=== PATIENT | male | born 1990 | race Caucasian/White ===

== ENCOUNTER 2016-10-03 09:22 | Emergency (ER) | payer OTHER ==
--- NOTE | ~2016-10-03 | EKG ---
PATIENT: KALI COSTA UNIT #: [id number] Ventricular Rate: 61 BPM Atrial Rate: 61 BPM P-R Interval: 160 ms QRS Duration: 96 ms Q-T Interval: 396 ms QTC Calculation(Bezet): 398 ms P [place]: 16 degrees Calculated R [place]: 81 degrees Calculated T [place]: 34 degrees Diagnosis Line: Normal sinus rhythm Diagnosis Line: Normal ECG Diagnosis Line: When compared with ECG of 11-NOV-2014 01:15, Diagnosis Line: No significant change was found Diagnosis Line: Confirmed by WILL JEFFERSON MD ([id number]) on Diagnosis Line: 10/03/2016 11:12:11 AM INTERPRETING ABBY GORDON
--- NOTE | ~2016-10-03 | CR72 ---
[facility] A Service of [facility] & [facility] RADIOLOGY TEXT RESULTS PATIENT: KALI COSTA LOCATION: [facility] : [birth year] UNIT #: [id number] AGE: [address]: Digna Maciel APRN SEX: M ORDER DR: [id number] [facility] [address] [place], [place] [address] [id number] E MR#: [id number] #: [id number] NAME: KALI COSTA : 1990 SEX: M STUDY DATE/TIME: 10/03/2016 9:53 UNIT: [facility] ROOM: STUDY DESCRIPTION: CR Chest Single View Portable Attending Physician: Digna Maciel A.P.R.N. Ordering Physician: Ed Doctor [id number] [facility] Primary Care Physician: Primary Care Physician No MEDICAL IMAGING REPORT This report is preliminary unless electronic signature is present EXAM Portable chest x-ray, 10/03/2016 HISTORY Short of air, chest pain 1 day duration. FINDINGS AP radiograph of the chest is presented. Comparison 12/13/2013. Heart upper limits of normal in size. Lungs well inflated. No indication of acute pulmonary disease. No pleural effusion or pneumothorax. No suspicious nodule. Mild dextroscoliosis thoracic spine unchanged. No acute appearing bony abnormality. Dictated by... Chan Mendoza M.D. THIS IS AN ELECTRONICALLY VERIFIED REPORT Chan Mendoza M.D. at 10/04/2016 6:42 PM Jossie TD: 10/03/2016 11:41 JOB #: [id number] MEDICAL IMAGING REPORT Page 1 of 1 COPY
[~2016-10-03 09:22] MED LIST: BENADRYL25 M1 PO; IBUPROFEN PO; SILVADENE TOP
[2016-10-03 10:05] LABS: BASOPHIL% 0.3 % (0-2.5); DIFF IND NO; EOSINOPHIL# 0.1 X10e3 (0-0.7); EOSINOPHIL% 0.5 % (0.0-7.0); HEMATOCRIT 48.2 % (38.0-50.0); LYMPHOCYTE# 1.1 X10e3 (1.0-3.5); LYMPHOCYTE% 10.6 % (17.0-45.0); MEAN CELL VOLUME 89.6 FL (83-96); MEAN CORPUSCULAR HEMOGLOBIN 29.6 PG (28-34); MEAN CORPUSCULAR HGB CONC 33.1 g/dL (30-36); MEAN PLATELET VOLUME 9.2 FL (6.5-11.5); MONOCYTE# 0.7 X10e3 (0-1.0); MONOCYTE% 6.1 % (3.0-12.0); NEUTROPHIL# 8.8 X10e3 (1.5-7.1); NEUTROPHIL% 82.5 % (40-75); PLATELET COUNT 168 X10e3 (140-420); RED BLOOD COUNT 5.39 X10e (3.90-5.60); WHITE BLOOD COUNT 10.7 X10e3 (4.0-10.5)
[2016-10-03 10:37] LABS: ALBUMIN SERUM 4.6 g/dL (3.5-5.0); BILIRUBIN, DIRECT 0.1 mg/dL (0.0-0.2); BILIRUBIN,INDIRECT 0.3 mg/dL (0.0-0.9); BILIRUBIN,TOTAL 0.4 mg/dL (0.2-2.0); CALCIUM SERUM 9.3 mg/dL (8.4-10.2); CREATININE SERUM 0.5 mg/dL (0.6-1.4); GLOM FILT RATE Estimated 150.7 mL/min (>60); POTASSIUM 3.9 mmol/L (3.5-5.1)
[2016-10-03 12:18] LABS: %MB 1.5 % (0.0-4.0); MB 1.2 ng/ml
[2016-10-03 13:04] LABS: URINE SOURCE CLEAN CATCH
[2016-10-03 13:14] LABS: CULTURE INDICATED? NO; URINE APPEARANCE CLEAR; URINE BILIRUBIN NEG (NEG); URINE BLOOD NEG (NEG); URINE COLOR YELLOW; URINE GLUCOSE NEG (NEG); URINE KETONE NEG (NEG); URINE LEUKOCYTE ESTERASE NEG (NEG); URINE NITRATE NEG (NEG); URINE PH 7.5 (5-8); URINE PROTEIN NEG (NEG); URINE SPECIFIC GRAVITY 1.024 (1.003-1.035); URINE UROBILINOGEN 0.2 MG/DL (NEG)
== END 2016-10-03 15:08 | disposition home or self-care (01) ==
LOC: CED 09:22
PROVIDERS: Nurse Practitioner
DX: R06.02 Shortness of breath (principal); R10.13 Epigastric pain; R03.0 Elevated blood-pressure reading, without diagnosis of hypertension; R07.9 Chest pain, unspecified; R11.0 Nausea; Z98.890 Other specified postprocedural states
CPT/HCPCS: 36415; 71010; 80048; 80076; 81003; 82550; 82553; 83690; 84484; 85025; 93005; 96374; 96375; 99285; C9113; J2405